=== PATIENT | male | born 1965 | race Caucasian/White ===

== ENCOUNTER 2022-03-30 09:15 | Emergency (ER) | payer BC, OTHER ==
[~2022-03-30] VITALS: Ht 182.9 cm; Wt 76.0 kg
[2022-03-30 09:18] VITALS: BP 164/77
[2022-03-30] MEDS ORDERED: ketorolac trometh inj. 60 MG/2 ML VIAL IM ONE (10:20)
[2022-03-30] MEDS ORDERED: HYDR-3965 PO (10:23)
== END 2022-03-30 10:55 | disposition home or self-care (01) ==
LOC: ER 09:16
DX: M25.512 Pain in left shoulder (principal); M54.6 Pain in thoracic spine; Z79.899 Other long term (current) drug therapy
CPT/HCPCS: 96372; 99283; J1885